=== PATIENT | female | born 1940 | race Native Hawaiian/Other Pacific Islander ===

== ENCOUNTER 2019-05-23 01:05 | Emergency (ER) | payer OTHER ==
[~2019-05-23] VITALS: Ht 165.1 cm; Wt 63.5 kg
[2019-05-23 01:49] LABS: PLATELET COUNT 184 K/uL (152-353)
[2019-05-23 02:38] VITALS: BP 121/69; TEMP 97.7
[2019-05-23] MEDS ORDERED: AMLO2.5T PO (03:12)
[2019-05-23] MEDS ORDERED: ASA LOW DOSE81 MG PO (03:13)
[2019-05-23] MEDS ORDERED: LIPITOR80 MG PO (03:14)
[2019-05-23] MEDS ORDERED: DIVA250T PO (03:17)
[2019-05-23] MEDS ORDERED: ACID CONTROL20 MG PO (03:18)
[2019-05-23] MEDS ORDERED: ZIPR20CA PO ×2 (03:21→03:22)
[2019-05-23] MEDS ORDERED: ZIPR20IN IM (03:23)
[2019-05-23] MEDS ORDERED: LAMICTAL25 MG PO (03:28)
[2019-05-23] MEDS ORDERED: GLUCAGON1 M1 IM (03:28)
[2019-05-23] MEDS ORDERED: LANTUS100 UNIT/M SC (03:32)
[2019-05-23] MEDS ORDERED: METO50TA63 PO (03:35)
[2019-05-23] MEDS ORDERED: INSU100P SC (03:41)
[2019-05-23] MEDS ORDERED: OXYC5TAB53 PO (03:42)
[2019-05-23] MEDS ORDERED: SERT100T PO (03:42)
[2019-05-23] MEDS ORDERED: TRAZ50TA36 PO (03:43)
[2019-05-23] MEDS ORDERED: VIMPAT150 MG PO (03:44)
[2019-05-23] MEDS ORDERED: GLUCERN1 PO (03:48)
[2019-05-23] MEDS ORDERED: PROSTAT PO (03:50)
== END 2019-05-23 02:39 | disposition other institution (70) ==
LOC: ED 01:05
PROVIDERS: Emergency Medicine
DX: F03.91 Unspecified dementia, unspecified severity, with behavioral disturbance (principal); E11.65 Type 2 diabetes mellitus with hyperglycemia; E86.0 Dehydration; Z04.6 Encounter for general psychiatric examination, requested by authority
CPT/HCPCS: 36415; 80053; 83036; 85027; 99285; J1200; J1630; J2060